=== PATIENT | male | born 1935 | race Caucasian/White ===

== ENCOUNTER 2018-07-03 06:38 | Inpatient (IN) | payer OTHER ==
[~2018-07-03] VITALS: Ht 185.4 cm; Wt 99.8 kg
[~2018-07-03 06:38] MED LIST: AMITRIPTYLINE H10 M1 PO; AMITRIPTYLINE H25 M3 PO; ASPIRIN325 PO; B-100 COMPLEX1 EAC1 PO; B-COMPLEX 100400 MC1; BYSTOLIC 5 MG5 M1 PO; CELEBREX 200 M200 M1 PO; CELEBREX 200 M200 MG PO; FISH OIL 1,001000 MG PO; HYDROCODONE-AP1 EA12 PO; LIPITOR10 MG PO; LIPITOR40 MG PO; MAG-OX 400 TAB400 M1 PO; MAG-OXIDE400 MG PO; MAXZIDE-25 MG1 EACH PO; NEXIUM40 MG PO; NIASPAN 500 MG500 M1 PO; NORCO 10-325 T1 EACH PO; PERCOCET 10-321 EACH; PLAVIX 75 MG TA75 M1 PO; PLAVIX 75 MG TA75 MG PO; QUINU10 PD PO; RESTORIL30 MG PO; TOPROL XL50 MG PO; VISTARIL 25 MG25 M1 GT; VITAMIN B-6100 MG PO
[2018-07-03] MEDS ORDERED: LEVOFLOXACIN250 MG PO (16:28)
[2018-07-03] MEDS ORDERED: MAXZIDE-25 MG1 EACH PO (16:29)
[2018-07-03 18:34] LABS: HEMATOCRIT 42.4 % (42.0-52.0); HEMOGLOBIN 14.3 gm/dL (14.0-18.0); MCH 30.7 pg (26.0-34.0); MCHC 33.7 g/dL (28.0-37.0); MCV 91.1 fL (80.0-100.0); RBC 4.65 mil/uL (4.50-6.00); RDW 13.4 % (10.5-14.5); WBC 7.8 thou/uL (4.0-11.0)
[2018-07-03 18:49] LABS: ALBUMIN 3.1 g/dL (3.4-5.0); CALCIUM 9.4 mg/dL (8.5-10.1); CREATININE 1.4 mg/dL (0.7-1.3); POTASSIUM 3.9 mmol/L (3.5-5.1); TOTAL BILIRUBIN 0.3 mg/dL (<0.1-1.0); TOTAL PROTEIN 6.8 g/dL (6.4-8.2)
[2018-07-03 19:05] VITALS: BP 147/93
[2018-07-03 20:45] VITALS: BP 154/92
--- NOTE | 2018-07-03 22:25 | NUR ---
2110: TOOK DISC OF CT FROM [place] TO RADIOLOGY TO HAVE UPLOADED TO SYSTEM PER DR SCHULTE'S REQUEST. DISC RETURNED TO PATIENT.
[2018-07-04 00:27] VITALS: BP 161/90
--- NOTE | 2018-07-04 04:04 | NUR ---
SLEPT MOST OF SHIFT. DENIES COMPLAINTS OF PAIN OR SHORTNESS OF AIR THIS NOC. UP TO BATHROOM WITH STEADY GAIT, WITH STANDBY ASSIST. WORKING ON GOALS AND PLAN OF CARE FOR NOC. NOT PROGRESSING TOWARDS DISCHARGE GOALS AT THIS TIME. CONTINUE TO ASSES CLOESLY.
[2018-07-04 04:30] VITALS: BP 142/90
[2018-07-04 08:01] VITALS: BP 144/85
[2018-07-04 11:46] VITALS: BP 134/86
--- NOTE | 2018-07-04 14:45 | NUR ---
ASSESSMENT: CM REVIEWED CHART AND MET WITH PT AT THE BEDSIDE. PT IS ALERT AND ORIENTED X4. CM MET WITH AND PT. PT REPORTS HE LIVES IN A HOUSE WITH HIS IN [place], [place]. PT REPORTS HE HAS ABOUT 5 STEPS WITH HANDRAILS TO ENTER HIS HOME. PT REPORTS ONCE INSIDE HE HAS NO STEPS TO HIS BEDROOM BUT REPORTS ABOUT 14 STEPS WITH HANDRAILS TO THE BASEMENT WHERE HE TAKES HIS SHOWER. PT REPORTS HE AMBULATES INDEPENDENTLY AND DOES NOT HAVE A CANE OR WALKER. PT REPORTS HE IS INDEPENDENT WITH ADLS. PT AND HIS SPEND THE D[place] IN [place] AND PT RECENTLY THERE AND ON 05/29 HE FELL ON STEPS IN HIS BOAT IN [place] AND [place] RI[place] AND HAS A WOUND TO HIS RYAN. PT WENT TO THE DOCTOR IN [place] AND PT HAD A CT OF CHEST AND FOUND A LUNG MASS. CTS AND PULM WERE CONSULTED FOR PATIENT. PT REPORTS THAT HE WAS SEEING DR. HESTER YESTERDAY FOR WOUND CARE AND THEY WERE SUPPOSED TO SET UP HH BUT STATES HE IS UNSURE THEY DID BECAUSE THEY TOLD HIM HE IS NOW INPATIENT. CM ATTEMPTED TO CONTACTED DR. HESTER OFFICE BUT IT IS CLOSED. AND PT PREFER HH TO HELP WITH WOUND CARE DUE TO LIVING FAR AND DO NOT HAVE A PREFERENCE ON AGENCY. CM CONTACTED [facility] [phone] WHO STATES THEY DO SERVICE THAT AREA AND TO FAX REFERRAL. CM FAXED REFERRAL TO [facility] FAX [phone].
[2018-07-04 15:12] VITALS: BP 130/77
--- NOTE | 2018-07-04 17:06 | NUR ---
WOUND CONSULT: PT. WAS SEEN TODAY BY DR. ADAMS AND MYSELF. PT. HAS A HEALING WOUND TO HIS LEFT LEG IN RELATION TO AN HEMOTOMA. RECOMMENDATIONS: WOUND CARE TO LEFT LEG: GENTLY CLEANSE AREA WITH WOUND CLEANSER OR NORMAL SALINE, PACK WITH AQUACEL AG TO WOUND BED, COVER WITH BORDERED FOAM, COMPLETE CARES M/W/F AND PRN. PT. AND STAFF NURSE WERE INSTRUCTED ON PLAN OF CARE.
[2018-07-04 19:25] VITALS: BP 138/77
[2018-07-05 00:28] VITALS: BP 128/88
[2018-07-05 04:23] VITALS: BP 143/91
--- NOTE | 2018-07-05 05:52 | NUR ---
PT MAKING PROGRESS TOWARDS GOALS. NO COMPLAINTS OF PAIN OVERNIGHT. HAS SLEPT MUCH OF THE NIGHT.
[2018-07-05 07:58] VITALS: BP 135/85
[2018-07-05 15:33] VITALS: BP 131/75
--- NOTE | 2018-07-05 16:41 | NUR ---
PT CARE ASSUMED APPROX 0700. PT ALERT AND ORIENTED X4. DENIES PAIN AND SOA. VSS. AT BEDSIDE. DR HAVE ALL ROUNDED. PT DENIES QUESTIONS OR CONCERNS REGARDING POC AT THIS TIME. CLINICAL UPDATE GIVEN TO PT'S . PT EVALUATED PT THIS SHIFT AND HAS APPROVED PT TO BE INDEPENDENT AND NO LONGER A FALL RISK. FALL RISK BRACELET REMOVED AND PT NOW IN ALEMAN SOCKS INSTEAD OF YELLOW FALL RISK SOCKS. NO DISTRESS NOTED.
[2018-07-05 20:00] VITALS: BP 135/81
[2018-07-06 04:15] VITALS: BP 131/85
[2018-07-06 04:29] LABS: ALBUMIN 2.8 g/dL (3.4-5.0); CREATININE 1.4 mg/dL (0.7-1.3); TOTAL BILIRUBIN 0.4 mg/dL (<0.1-1.0); TOTAL PROTEIN 6.4 g/dL (6.4-8.2)
[2018-07-06 04:30] LABS: PROTIME 9.9 Seconds (9.3-11.4)
[2018-07-06 04:31] LABS: ABSOLUTE NEUTROPHILS 5.6 thou/uL (1.4-8.2); BASOPHILS 0.6 % (0.0-2.0); EOSINOPHILS 2.8 % (0.0-3.0); HEMATOCRIT 42.4 % (42.0-52.0); HEMOGLOBIN 14.5 gm/dL (14.0-18.0); LYMPHOCYTES 9.8 % (24.0-44.0); MCH 31.1 pg (26.0-34.0); MCHC 34.2 g/dL (28.0-37.0); MCV 91.2 fL (80.0-100.0); MONOCYTES 10.3 % (1.0-8.0); PLATELET COUNT 249 thou/uL (150-400); POLYS 76.5 % (36.0-66.0); RBC 4.65 mil/uL (4.50-6.00); RDW 13.7 % (10.5-14.5); WBC 7.4 thou/uL (4.0-11.0)
--- NOTE | 2018-07-06 05:47 | NUR ---
PT MAKING PROGRESS TOWARDS GOALS. PT AWARE OF CT RESULTS, STATING THAT THE PHYSICIANS HAD INFORMED HIM "THAT ITS LIKELY CANCER." PT OPTIMISTIC STATING HE HOPE THAT IT WAS CAUGHT EARLY. AWARE OF PLANS FOR BIOSPY ON SATURDAY. UP AD LULU TO TOILET. DENIES ANY SOA. ON ROOM AIR THROUGHOUT THE NIGHT.
[2018-07-06 07:23] VITALS: BP 137/93
--- NOTE | 2018-07-06 11:21 | HC ---
[facility] [place] [address] CONSULTATION Name: CB TALBERT Room #: 352-P [facility] IN M.R.#: [id number] Admission: 07/03/18 ������������������ Attend Phys: Ziyad Corrales MD Discharge: ������������������ Date of : 37 Report #: [id number] THIS REPORT FOR: //name// CC: Leonides Corrales DATE OF SERVICE: 07/04/2018 We were asked to see the patient by Dr. Ziyad Corrales. HISTORY OF PRESENT ILLNESS: The patient is an 83-year-old admitted with increasing fatigue. The patient is being seen in the Wound Care Clinic for a slowly healing wound in the left schultz that began after the patient sustained a fall in [place] on 05/29/2018. We note that a CT scan of the chest was done on 05/30/2018 in [place]. This showed a spiculated mass in the right upper lobe of lung, measuring approximately 2.7 cm, with adjacent pleural thickening. Additionally, there was a 2.7 right hilar component and a small middle lobe subpleural nodule, measuring approximately 4 mm in size. There was also a nondisplaced fracture of the right 7th rib. In view of the increasing fatigue, the patient was admitted for evaluation of all of this. PAST MEDICAL HISTORY: Past history is significant for coronary artery disease, arthritis, hyperlipidemia, cataracts, barotrauma, sinusitis, tinnitus, glaucoma, COPD, myocardial infarcts in 1995 and 2001, prostate cancer diagnosed in 10/2012 and shingles in 12/2014. PAST SURGICAL HISTORY: Previous surgeries include cholecystectomy, neck surgery, left shoulder replacement, carpal tunnel surgery, left hand cyst removal, cataract repair, back surgery, right and left knee replacement, transurethral prostate resection and stent placement in the coronary artery. MEDICATIONS: At home include aspirin, atorvastatin, quinapril, magnesium, Celebrex, Plavix, omeprazole, Levaquin, amitriptyline and vitamin B. ALLERGIES: PENICILLIN. FAMILY HISTORY: Positive for heart disease in father and a sibling. SOCIAL HISTORY: The patient is remarried. The patient claims he is a former smoker, who quit in 1994. He lives in [place] part of the year. REVIEW OF SYSTEMS: GENERAL: The patient describes some generalized fatigue, but no fever or chills. [address] [address] CONSULTATION Name: CB TALBERT Room #: 352-P [facility] IN ..#: [id number] Admission: 07/03/18 ������������������ Attend Phys: Ziyad Corrales MD Discharge: ������������������ Date of : 37 Report #: [id number] EYES: No visual changes. ENT: Wears hearing aids. No nose or throat complaints. CARDIAC: No chest pain or palpitations. RESPIRATORY: Mild shortness of breath with exertion. SKIN: No rash or infection. GASTROINTESTINAL: No nausea, vomiting or blood. GENITOURINARY: No urgency, frequency or blood. MUSCULOSKELETAL: Some scattered arthritic complaints. NEUROLOGIC: No motor or sensory loss. PSYCHIATRIC: No depression or anxiety. EXTREMITIES: Being treated for a large wound on the left lower leg. PHYSICAL EXAMINATION: CONSTITUTIONAL: The patient is lying in bed, seems comfortable. VITAL SIGNS: Temperature 36.8, pulse rate 84, respiratory rate 16, blood pressure 134/86 and O2 sat 95 on room air. HEENT: Normocephalic. Pupils are round, equal and reactive. NECK: No mass, no bruit. CHEST: Clear to auscultation bilaterally. HEART: Rhythm regular. No murmurs. ABDOMEN: Soft. No mass, no tenderness. EXTREMITIES: We note the Samm wrap around the left schultz; otherwise, no obvious problems with the wounds, clubbing or cyanosis. VASCULAR: With 2+ popliteal pulses bilaterally. PSYCHIATRIC: Mood is appropriate, shows insight into problem. ASSESSMENT AND PLAN: The patient has CT scan that is consistent with lung malignancy, be it primary or metastatic. As the patient is an inpatient, it will be difficult to obtain a PET scan. It would be reasonable to obtain a needle biopsy of the larger right upper lobe lesion at least for diagnostic purposes. As far as the fatigue goes, this may be a reflection of more systemic disease. We will discuss workup with the others. Thank you for the consult. ��������������������������������������������� <ELECTRONICALLY SIGNED> ���������������������������������������� By: Greg Giron MD ��������������������������������������������� 07/06/18 1121 [id number] [id number] Greg Giron MD /nt
--- NOTE | 2018-07-06 11:32 | NUR ---
care of pt assumed this am @ ~0700. pt noted to be resting in bed quietly. pt awakened from sleep when breakfast tray arrived, ate breakfast sitting at bs. pt denies co pain, soa and no n/v/d thus far today. pt on room air. 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 pt up ad elena in room w/ a steady, balanced and coordinated gait. pt offered a shower today, states he may like one later today. noted intact, w/ drainage drsg to lle.
[2018-07-06 16:17] VITALS: BP 142/81
[2018-07-06 19:30] VITALS: BP 148/78
[2018-07-07] VITALS (12 sets, daily range): BP systolic 115–1119; BP diastolic 59–94
--- NOTE | 2018-07-07 03:21 | NUR ---
SLEPT MOST OF SHIFT. UP AD LULU TO BATHROOM WITH STEADY GAIT. DENIES COMPLAINTS OF PAIN OR SHORTNESS OF AIR. NPO FOR AM LUNG BIOPSY. WORKING ON GOALS AND PLAN OF CARE FOR NOC. PROGRESSING SLOWLY TOWARDS DISCHARGE GOALS. CONTINUE TO SLEEP,
--- NOTE | 2018-07-07 08:52 | HC ---
[facility] [place] [address] CONSULTATION Name: CB TALBERT Room #: 352-P [facility] IN M.R.#: [id number] Admission: 07/03/18 ������������������ Attend Phys: Ziyad Corrales MD Discharge: ������������������ Date of : 37 Report #: [id number] THIS REPORT FOR: //name// CC: Leonides Corrales DATE OF SERVICE: 07/04/2018 CHIEF COMPLAINT: Traumatic wound to the left lower extremity. HISTORY OF PRESENT ILLNESS: This is an 83-year-old male patient who spends his troncoso down in [place]. He was on a fishing boat when he stumbled going down some steps sustaining a traumatic injury to his left leg. He developed hematoma, it required debridement and evacuation. He originally had a wound VAC placed and was seen in the Wound Center for followup here at [facility]. He has been admitted, however, for some pulmonary related issues and lung masses and is here for further evaluation and treatment. I have been asked to see him with regard to wound care. PAST MEDICAL HISTORY: Positive for coronary artery disease, hyperlipidemia, sinusitis, tinnitus, glaucoma, COPD, previous myocardial infarction, prostate cancer, shingles. MEDICATIONS: Include aspirin, atorvastatin, quinapril, magnesium, Celebrex, Plavix, esomeprazole, Levaquin, amitriptyline. ALLERGIES: PENICILLIN. FAMILY HISTORY: Positive for heart disease. SOCIAL HISTORY: The patient drinks caffeine daily. Moderate alcohol consumption. REVIEW OF SYSTEMS: CONSTITUTIONAL: The patient denies fever, chills, or weight loss. NEUROLOGICAL: The patient denies focal weakness, numbness or tingling. EYES: The patient denies visual changes, redness or drainage. ENT: The patient denies earache, nasal drainage or sore throat. CARDIOVASCULAR: The patient denies chest pain, palpitations, or diaphoresis. PULMONARY: The patient denies cough or shortness of breath except with exertion. GASTROINTESTINAL: The patient denies nausea, vomiting or abdominal pain. ORTHOPEDIC: The patient is aware of the ulceration, traumatic wound to his left leg. Other systems are negative in a 14-point review of systems. PHYSICAL EXAMINATION: [facility] [address] [place] [address] CONSULTATION Name: CB TALBERT Omer Room #: 352-P [facility] IN ..#: [id number] Admission: 07/03/18 ������������������ Attend Phys: Ziyad Corrales MD Discharge: ������������������ Date of : 37 Report #: [id number] VITAL SIGNS: At this time include pulse 68, respiration 16, blood pressure 130/77, and temperature 98.0. GENERAL: This is a chronically ill-appearing male patient who appears to be in minimal distress. HEENT: Head normocephalic. Nose and throat clear. NECK: Supple. LUNGS: Diminished. HEART: Regular rate. ABDOMEN: Soft. Bowel sounds present. EXTREMITIES: Examination of the lower extremities demonstrates intact distal pulses. He has a traumatic wound to the left pretibial region. It is clean and granulating. There is some undermining and a small tunnel that extends laterally. Does not appear to be infected. CLINICAL IMPRESSION: Traumatic wound to the left lower extremity following fall with subcutaneous hematoma. It is status post incision and evacuation. RECOMMENDATIONS: At this point in time, we will pack the area with silver alginate rope and covered with a border foam. This could be changed Saturday, Saturday and Saturday and as needed. Continue with his current medications and aggressive nutritional support to maintain maximum wound healing. I appreciate being asked to see him in consultation. ��������������������������������������������� <ELECTRONICALLY SIGNED> ���������������������������������������� By: Deangelo Yang MD ��������������������������������������������� 07/07/18 0852 [id number] Deangelo Yang MD /nt
--- NOTE | 2018-07-07 16:33 | NUR ---
ON-GOING ASSESSMENT: CM REVIEWED CHART. CM CONTACTED [facility] WHO STATES THEY CANNOT ACCEPT PATIENT DUE TO THEM NOT HAVING A CONTRACT WITH PATIENTS INSURANCE. CM CONTACTED [facility] AGAIN TO SEE IF THEY COULD ACCEPT PATIENT. THEY ARE ABLE TO ACCEPT PATIENT FOR HOME HEALTH SERVICES ONCE MEDICALLY STABLE. PT HAS A LUNG MASS AND WAS GETTING A BIOPSY TODAY. CM WILL CONTINUE TO FOLLOW TO ASSIST NEEDED.
--- NOTE | 2018-07-07 16:46 | NUR ---
WOUND FOLLOW UP: PT. WAS SEEN TODAY BY DR. ADAMS AND MYSELF. PT. WOUND IS CLINICALLY BETTER TODAY. RECOMMENDATIONS: CONTINUE WITH CURRENT PLAN OF CARE. PT. AND STAFF NURSE WERE INSTRUCTED ON PLAN OF CARE.
--- NOTE | 2018-07-07 18:50 | NUR ---
PATIEN HAD BIOPSY TODAY AND TOLERATED WELL. DOES NOT SEEM TO BE IN PAIN. DID COMPLAIN OF PAIN TO RIGHT UPPER BACK. STATES IT HURTS MORE WHEN HE STANDS IN THE BATHROOM. HE IS ALERT ORIENTED X4. NOW SLEEPING. WILL CONT WITH PLAN OF CARE.
--- NOTE | 2018-07-08 03:25 | NUR ---
ASSUMED PT CARE AROUND 1900. A&OX4. DENIES ANY PAIN. UP AD LULU AROUND THE ROOM WITH STEADY GAIT. DR WATKINS ROUNDED ON PT LATE IN THE EVENING. PT SLEPT MOST OF THE NIGHT. RESP EVEN AND UNLABORED. VSS. RT CHEST LUNG BIOPSY SITE C/D/I. NO MAJOR COMPLAINTS THIS SHIFT. PROGRESSING TOWARD POC GOALS. WILL CONTINUE TO MONITOR FURTHER.
[2018-07-08 03:55] VITALS: BP 119/74
[2018-07-08 08:06] VITALS: BP 117/83
--- NOTE | 2018-07-08 15:01 | NUR ---
on-GOING ASSESSMENT: CM REVIEWED CHART AND MET WITH PATIENT AND HIS AT THE BEDSIDE. PT HAS ORDERS TO DISCHARGE HOME TODAY WITH HH. [facility] HAS ACCEPTED PATIENT AND IS IN HIS SERVICE AREA. CM NOTIFIED [facility] OF DISCHARGE TODAY. REPORTS SHE IS ABLE TO PROVIDE TRANSPORTATION HOME. CM WILL CONTINUE TO FOLLOW TO ASSIST NEEDED.
--- NOTE | 2018-07-08 15:31 | NUR ---
WOUND FOLLOW UP: PT. WAS SEEN TODAY BY DR. ADAMS AND MYSELF. PT. WOUND IS CLINICALLY BETTER AT THIS TIME. RECOMMENDATIONS: CONTINUE WITH CURRENT PLAN OF CARE. PT. AND STAFF NURSE WERE INSTRUCTED ON PLAN OF CARE.
[2018-07-08 15:59] VITALS: BP 128/76
--- NOTE | 2018-07-08 16:14 | NUR ---
PATIENT DISCHARGED HOME AT THIS TIME. HE IS ALERT ORIENTED X4. WOUND CARE DRESSING INSTRUCTION GIVEN. HE WILL FOLLOW UP WITH CARDIOLOGY AND ALSO OUTPATIENT PET SCAN WILL BE SCHEDULED BY DR WATKINS. HE DENIES PAIN AT TIME OF DISCHARGE. ASSISTED TO DOOR BY STAFF.
--- NOTE | 2018-07-09 16:06 | PATH ---
[facility] [place] [address] PATHOLOGY RPT PROCEDURE Name: CB TALBERT Room #: 352-P [facility] IN M.R.#: [id number] ������������������ Admission: 07/03/18 ������������������ Date of : 37 Discharge: 07/08/18 Report #: [id number] Path Case #: [id number] [facility] Accession Number: [id number] . 01 Material submitted: . lung - RIGHT LUNG MASS. Modifiers: right . 01 Clinical history: . R upper lobe mass, LLE wound and fractures ribs . 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 - No lung parenchyma present. - Specimen comprised of fibrous tissue, nerve and skeletal muscle. - Focal perineural invasion present. - Skeletal muscle showing reactive changes; uninvolved by malignancy. (IUV:wilbur; 07/09/2018) MBR/07/09/2018 . 02 Comment: TTF-1 and p63 properly controlled immunohistochemical stains are performed on block A1. The tumor shows strong nuclear reactivity to p63 consistent with the diagnosis rendered. . Co-review: Dr. Summer Damon. . Findings of this case are discussed with Miss Shahida Mckeon, nurse for Dr. Stephens at 10:13 a.m. on 07/09/18. . (IUV:screener operator; 07/09/2018) . 02 Electronically signed: . Gabriela Mckeon MD, Pathologist NPI- [id number] . 01 Gross description: . The specimen is received in formalin, labeled "Cb Talbert R lung mass" and consists of a few delicate needle cores of pink-odonnell tissue measuring 0.5 x 0.4 x 0.1 cm in aggregate which are entirely submitted in A1. (SDY; 07/07/2018) SYU/SYU . 02 Pathologist provided ICD-10: C49.3 . 02 [place] [address] PATHOLOGY RPT PROCEDURE Name: CB TALBERT Room #: 352-P [facility] IN M.R.#: [id number] ������������������ Admission: 07/03/18 ������������������ Date of : 37 Discharge: 07/08/18 Report #: [id number] Path Case #: [id number], [id number] Specimen Comment: A courtesy copy of this report has been sent to Specimen Comment: [phone], , . Specimen Comment: Report sent to ,DR HESTER / DR WATKINS Performed at: [address], [place] [id number] MD Shreyas Ryan MD Phone: [phone] Performed at: [address] [id number] MD Gabriela Mckeon MD Phone: [phone]
[2018-07-21] MEDS ORDERED: TRAZODONE HCL100 MG PO (08:36)
[2018-07-21] MEDS ORDERED: SUPER B-50 COM1 EACH PO (08:37)
[2018-07-21] MEDS ORDERED: NITROGLYCERIN0.4 MG SUBLING (08:37)
--- NOTE | 2018-07-23 12:04 | H ---
[facility] [place] [address] HISTORY AND PHYSICAL Name: CB TALBERT Room #: 352-P [facility] IN M.R.#: [id number] Admission: 07/03/18 ������������������ Attend Phys: Ziyad Corrales MD Discharge: 07/08/18 ������������������ Date of : 37 Report #: [id number] THIS REPORT FOR: //name// CC: Leonides Corrales DATE OF SERVICE: 07/03/2018 CHIEF COMPLAINT: Lung masses. HISTORY OF PRESENT ILLNESS: The patient is an 83-year-old white male well known to me as I have provided his primary medical care for a number of years. He tron[place]o in [place] and while in [place] on 05/29/2018, he fell on a set of stairs in his boat. He fractured some left-sided ribs, had a wound on his left schultz, which developed a hematoma and he went to a physician in [place], [place]. He received wound care and hematoma evacuation and his imaging studies for his chest, which was a CT chest without contrast done on 05/30/2018 at [facility] [place] [facility]. A spiculated mass was seen in the peripheral aspect of the right upper lung laterally and anteriorly measuring 2.7 cm with a neoplastic process not excluded, adjacent pleural thickening was seen, soft tissue mass with suspected in the right hilum measuring 2.7 cm, also suspicious for neoplasia. Small subcentimeter right middle lobe lung nodules measuring 4 mm may also be related to metastatic process. I saw him in my office today on the day of this admission and reviewed his medical history since last seen in my office specifically and especially focusing on the events surrounding his fall and the incidental findings of his lung masses. We discussed options to proceed with diagnostic studies and eventually treatment. Reviewed the differential diagnosis and he opted for admission to [facility] and appropriate consults to Cardiothoracic surgery, Pulmonology, Cardiology and Wound Care for ongoing care of his left schultz healing wound. PAST MEDICAL HISTORY: Coronary artery disease, arthritis, hyperlipidemia, cataracts, barotrauma, sinusitis, tinnitus, glaucoma, chronic obstructive pulmonary disease, myocardial infarction 1995 and 2001, prostate cancer, 10/2012, shingles 12/2014, hearing aids from 06/30/2014. PAST SURGICAL HISTORY: Cholecystectomy, neck surgery, left shoulder replacement, carpal tunnel surgery, cyst of left hand, stent placement, cataract repair, back surgery, left and right knee replacement, transurethral resection of prostate. MEDICATIONS: Aspirin 325 mg once daily, none since his fall in May, atorvastatin 40 mg 1 p.o. daily, quinapril 10 mg 1 p.o. daily, magnesium 200 mg 2 p.o. daily, Celebrex 200 mg 1 p.o. daily, Plavix 75 mg 1 p.o. daily, none since his fall in May, esomeprazole 40 mg 1 p.o. daily, Levaquin 250 mg 1 daily over 14 days, 4 days left. Amitriptyline 25 mg 1 p.o. at bedtime, vitamin [address] [address] HISTORY AND PHYSICAL Name: CB TALBERT Room #: 352-P [facility] IN ..#: [id number] Admission: 07/03/18 ������������������ Attend Phys: Ziyad Corrales MD Discharge: 07/08/18 ������������������ Date of : 37 Report #: [id number] B complex 1 p.o. daily. ALLERGIES: PENICILLIN. FAMILY HISTORY: Positive for heart disease in father and a sibling, hypertension in sibling. SOCIAL HISTORY: He is remarried, retired, father of 2 children. Drinks caffeine daily. Drinks alcohol moderately socially. Denies illicit drug use or abuse. Lives at home, lives in [place] during the spring and summer, early fall and troncoso in [place]. REVIEW OF SYSTEMS: GENERAL: No fever, chills, nausea, vomiting, diarrhea. EYES: No visual changes. ENT: No problems with hearing, swallow, taste or smell. He does use hearing aids. CARDIOVASCULAR: No chest pain or palpitations. RESPIRATORY: He has some shortness of breath and exertional dyspnea. SKIN: He has a lung masses noted on CT scan from 05/2018. GASTROINTESTINAL: No abdominal pain. GENITOURINARY: No problems urinating. MUSCULOSKELETAL: Some arthritic changes. NEUROLOGIC: No paresis, paralysis or paresthesias. PSYCHIATRIC: Concern but not depressed. DERMATOLOGIC: No disturbing lesions or rash. EXTREMITIES: He does have a healing large wound on his left lower leg with recent hematoma evacuation there following a fall. Remainder of system review is negative. OBJECTIVE: VITAL SIGNS: Temperature is 97.1, pulse 73, respirations 122/83. He is in no acute distress, but respiratory rate 16, alert and oriented, engaging in conversation. HEENT: Pupils equal, round, reactive to light and accommodation. Extraocular muscles intact. Pharynx unremarkable. NECK: Supple. CARDIOVASCULAR: S1, S2. CHEST: Clear. ABDOMEN: Soft, nontender. EXTREMITIES: No cyanosis, clubbing or edema. He does have a wound on his left lower leg. NEUROLOGIC: Intact without focal neurologic deficit. ASSESSMENT: 1. Right lung masses. [facility] [address] [place] [address] HISTORY AND PHYSICAL Name: CB TALBERT Room #: 352-P [facility] IN .R.#: [id number] Admission: 07/03/18 ������������������ Attend Phys: Ziyad Corrales MD Discharge: 07/08/18 ������������������ Date of : 37 Report #: [id number] 2. Left seventh rib fracture. 3. Chronic obstructive pulmonary disease, compression fractures with vertebroplasty changes in the lower T-spine and upper lumbar spine, recent fall, left leg wound, coronary artery disease, history of myocardial infarction, hyperlipidemia, hypertension, history of prostate cancer, arthritis. PLAN: Admit to hospital. Consult Cardiothoracic Surgery, Cardiology, Pulmonology and Wound Care. Continue current medications, making sure that he is not currently taking Plavix or aspirin in anticipation of likely biopsy soon. Continue other current medications. Basic entry laboratory requested. ��������������������������������������������� <ELECTRONICALLY SIGNED> ���������������������������������������� By: Leonides Yun MD, LYDIA, RC ��������������������������������������������� 07/23/18 1204 1949 29 Leonides Yun MD, LYDIA, RC /nt
== END 2018-07-08 16:26 | disposition home health service (06) | DRG 204 ==
LOC: HYPER 06:38 → 3W 15:16 → HYPER 16:55 → 3W 17:07 → ENTRNSPT 07-08 16:03 → 3W 07-08 16:26
PROVIDERS: Internal Medicine; ADMIT Family Medicine
PROC: 0BBC3ZX Excision of Right Upper Lung Lobe, Percutaneous Approach, Diagnostic (ICD-10-PCS; principal; 2018-07-07)
DX: R91.8 Other nonspecific abnormal finding of lung field (principal); S22.32XA Fracture of one rib, left side, initial encounter for closed fracture; I25.10 Atherosclerotic heart disease of native coronary artery without angina pectoris; J44.9 Chronic obstructive pulmonary disease, unspecified; M19.90 Unspecified osteoarthritis, unspecified site; E78.5 Hyperlipidemia, unspecified; E66.9 Obesity, unspecified; Z96.652 Presence of left artificial knee joint; I10 Essential (primary) hypertension; S81.802A Unspecified open wound, left lower leg, initial encounter; Y93.89 Activity, other specified; Y92.89 Other specified places as the place of occurrence of the external cause; Y99.8 Other external cause status; V93.32XA Fall on board fishing boat, initial encounter; Z88.0 Allergy status to penicillin; Z90.49 Acquired absence of other specified parts of digestive tract; Z82.49 Family history of ischemic heart disease and other diseases of the circulatory system; Z79.899 Other long term (current) drug therapy; Z79.82 Long term (current) use of aspirin; I25.2 Old myocardial infarction; Z85.46 Personal history of malignant neoplasm of prostate; Z68.29 Body mass index [BMI] 29.0-29.9, adult
CPT/HCPCS: 10779; 10879

== ENCOUNTER → 2018-07-10 | Outpatient (CLI) | payer OTHER ==
[~2018-07-10] MED LIST changes: +LEVOFLOXACIN250 MG PO
== END ==
LOC: HYPER 06:54
DX: T81.89XD Other complications of procedures, not elsewhere classified, subsequent encounter (principal); L97.222 Non-pressure chronic ulcer of left calf with fat layer exposed; E78.5 Hyperlipidemia, unspecified; H40.9 Unspecified glaucoma; I25.10 Atherosclerotic heart disease of native coronary artery without angina pectoris; I25.2 Old myocardial infarction; J44.9 Chronic obstructive pulmonary disease, unspecified; M19.90 Unspecified osteoarthritis, unspecified site; Z85.46 Personal history of malignant neoplasm of prostate; Z79.01 Long term (current) use of anticoagulants; Z87.891 Personal history of nicotine dependence; Y83.8 Other surgical procedures as the cause of abnormal reaction of the patient, or of later complication, without mention of misadventure at the time of the procedure

== ENCOUNTER → 2018-07-16 | Outpatient (CLI) | payer OTHER | LOC: HYPER 06:41 | DX: T81.89XD Other complications of procedures, not elsewhere classified, subsequent encounter (principal); L97.222 Non-pressure chronic ulcer of left calf with fat layer exposed; I25.10 Atherosclerotic heart disease of native coronary artery without angina pectoris; I25.2 Old myocardial infarction; E78.5 Hyperlipidemia, unspecified; H40.9 Unspecified glaucoma; J44.9 Chronic obstructive pulmonary disease, unspecified; M19.90 Unspecified osteoarthritis, unspecified site; Z79.01 Long term (current) use of anticoagulants; Z87.891 Personal history of nicotine dependence; Z85.46 Personal history of malignant neoplasm of prostate; Y83.8 Other surgical procedures as the cause of abnormal reaction of the patient, or of later complication, without mention of misadventure at the time of the procedure ==

== ENCOUNTER → 2018-07-22 | Outpatient (CLI) | payer OTHER ==
[~2018-07-22] VITALS: Ht 185.4 cm; Wt 100.7 kg
[~2018-07-22] MED LIST changes: +NITROGLYCERIN0.4 MG SUBLING; +SUPER B-50 COM1 EACH PO; +TRAZODONE HCL100 MG PO
--- NOTE | 2018-08-04 13:32 | PFR/MVV ---
[facility] [address] PULMONARY FUNCTION MVV/REPORT Name: CB TALBERT Room #: [facility]#: [id number] ������������������ Admission: 07/22/18 ������������������ Attend Phys: Aquiles Ny MD Discharge: ������������������ Date of : 39 Report #: [id number] THIS REPORT FOR: //name// >> SPIROMETRY: (BTPS) Height: in cm Weight: lbs kg Exam Date: PRE-RX POST-RX PRED BEST %PRED BEST %PRED %CHG FVC LITERS . . . . . . FEV1 LITERS . . . . . . FEV1/FVC % . . . . . . QAM50-02% L/Sec . . . . . . PEF L/SEC . . . . . . FEF50/FIF50 UNITLESS . . . . . . MVV L/Min . . . f 1/Min . . . >> LUNG VOLUMES: (BTPS) PRE-RX POST-RX PRED AVG %PRED AVG %PRED %CHG VC Liters . . . . . . TLC Liters . . . . . . RV Liters . . . . . . RV/TLC % . . . . . . FRC PL Liters . . . . . . FRC N2 Liters . . . . . . ERV Liters . . . . . . IC Liters . . . . . . >> DIFFUSION: DLCO ml/Min/mmHg . . . . . . DL Chance ml/Min/mmHg . . . . . . DLCO/VA ml/Min/mmHg . . . . . . VA Liters . . . . . . COMMENTS: COMMENTS: >> RESISTANCE: [facility] [address] [place] [address] PULMONARY FUNCTION MVV/REPORT Name: CB TALBERT Room #: [facility]#: [id number] ������������������ Admission: 07/22/18 ������������������ Attend Phys: Aquiles Ny MD Discharge: ������������������ Date of : 37 Report #: [id number] PRE-RX PRED AVG %PRED Raw Total cmH20/L/Sec . . . Raw Insp cmH20/L/Sec . . . Raw Exp cmH20/L/Sec . . . Raw cmH20/L/Sec . . . Gaw L/Sec/cmH20 . . . sRaw cmH20 Sec . . . sGaw l/cmH20 Sec . . . Vtq Liters . . . # = OUTSIDE 95% CONFIDENCE INTERVAL CALIBRATION: PRED: 3.00 ACTUAL: EXP 3.01 INSP 3.02 [id number]-[id number] [facility] N-1804-4 >> INTERPRETATION/IMPRESSION: CC: Leonides Ny DATE OF SERVICE: 08/03/2018 Spirometric examination revealed moderate obstructive ventilatory defect. There was significant bronchodilator response. Lung volumes moderately decreased. Diffusion capacity is markedly reduced, corrected for alveolar volume. Flow volume loop is consistent with mixed obstructive and restrictive ventilatory defect. 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 Clinical correlation is suggested. ��������������������������������������������� <ELECTRONICALLY SIGNED> ���������������������������������������� By: Gurdeep Cordova MD ��������������������������������������������� 08/04/18 1332 Gurdeep Cordova MD /nt
== END ==
LOC: CATH 05:43 → PUL 08:59
DX: R06.00 Dyspnea, unspecified (principal)

== ENCOUNTER → 2018-07-30 | Outpatient (CLI) | payer OTHER | LOC: HYPER 06:52 | DX: T81.89XD Other complications of procedures, not elsewhere classified, subsequent encounter (principal); L97.222 Non-pressure chronic ulcer of left calf with fat layer exposed; E78.5 Hyperlipidemia, unspecified; H40.9 Unspecified glaucoma; I25.10 Atherosclerotic heart disease of native coronary artery without angina pectoris; I25.2 Old myocardial infarction; J44.9 Chronic obstructive pulmonary disease, unspecified; M19.90 Unspecified osteoarthritis, unspecified site; Z85.46 Personal history of malignant neoplasm of prostate; Z87.891 Personal history of nicotine dependence; Z79.01 Long term (current) use of anticoagulants; Y83.8 Other surgical procedures as the cause of abnormal reaction of the patient, or of later complication, without mention of misadventure at the time of the procedure ==

== ENCOUNTER → 2019-07-15 | Outpatient (CLI) | payer OTHER | LOC: SJCVCIMAG 09:22 | DX: R94.31 Abnormal electrocardiogram [ECG] [EKG] (principal); I21.19 ST elevation (STEMI) myocardial infarction involving other coronary artery of inferior wall; I44.0 Atrioventricular block, first degree; I12.9 Hypertensive chronic kidney disease with stage 1 through stage 4 chronic kidney disease, or unspecified chronic kidney disease; N18.4 Chronic kidney disease, stage 4 (severe); R79.89 Other specified abnormal findings of blood chemistry; I25.10 Atherosclerotic heart disease of native coronary artery without angina pectoris; E78.00 Pure hypercholesterolemia, unspecified; I25.5 Ischemic cardiomyopathy; C34.91 Malignant neoplasm of unspecified part of right bronchus or lung ==

== ENCOUNTER → 2019-11-11 | Outpatient (CLI) | payer OTHER | LOC: RAD 08:46 → MRI 12:01 → RAD 13:37 | PROVIDERS: ATTEND Orthopaedic Surgery | DX: M25.511 Pain in right shoulder (principal); M19.011 Primary osteoarthritis, right shoulder; Z79.899 Other long term (current) drug therapy; Z98.890 Other specified postprocedural states ==

== ENCOUNTER → 2019-12-14 | Outpatient (CLI) | payer OTHER | LOC: SJCVCIMAG 07:38 | PROVIDERS: ATTEND Internal Medicine Cardiovascular Disease | DX: I25.10 Atherosclerotic heart disease of native coronary artery without angina pectoris (principal); I44.0 Atrioventricular block, first degree; I49.3 Ventricular premature depolarization; E78.5 Hyperlipidemia, unspecified; E78.00 Pure hypercholesterolemia, unspecified; I12.9 Hypertensive chronic kidney disease with stage 1 through stage 4 chronic kidney disease, or unspecified chronic kidney disease; N18.4 Chronic kidney disease, stage 4 (severe); C34.91 Malignant neoplasm of unspecified part of right bronchus or lung; Z79.899 Other long term (current) drug therapy; Z87.891 Personal history of nicotine dependence ==

== ENCOUNTER 2020-01-28 09:53 | Emergency (ER) | payer OTHER ==
[~2020-01-28] VITALS: Ht 182.9 cm; Wt 113.4 kg
[2020-01-28] MEDS ORDERED: LEVO-T50 MCG PO (10:36)
[2020-01-28] MEDS ORDERED: PLAVIX 75 MG TA75 MG PO (10:36)
[2020-01-28] MEDS ORDERED: ALLER-EASE180 MG PO (10:37)
[2020-01-28] MEDS ORDERED: FLONASE 0.05%50 MCG NASAL (10:37)
[2020-01-28 10:58] LABS: ABSOLUTE NEUTROPHILS 9.9 thou/uL (1.4-8.2); BASOPHILS 0.2 % (0.0-2.0); EOSINOPHILS 0.8 % (0.0-3.0); HEMATOCRIT 30.4 % (42.0-52.0); HEMOGLOBIN 9.9 gm/dL (14.0-18.0); LYMPHOCYTES 4.2 % (24.0-44.0); MCH 28.2 pg (26.0-34.0); MCHC 32.7 g/dL (28.0-37.0); MCV 86.2 fL (80.0-100.0); MONOCYTES 10.4 % (1.0-8.0); PLATELET COUNT 361 thou/uL (150-400); POLYS 84.4 % (36.0-66.0); RBC 3.53 mil/uL (4.50-6.00); RDW 16.4 % (10.5-14.5); WBC 11.7 thou/uL (4.0-11.0)
[2020-01-28 11:09] LABS: ANION GAP 11 mmol/L (7-16); BUN 29 mg/dL (7-18); CALCIUM 8.6 mg/dL (8.5-10.1); CHLORIDE 97 mmol/L (98-107); CO2 27 mmol/L (21-32); CREATININE 2.2 mg/dL (0.7-1.3); GLUCOSE 127 mg/dL (74-106); POTASSIUM 3.5 mmol/L (3.5-5.1); SODIUM 135 mmol/L (136-145)
[2020-01-28 11:19] LABS: ALBUMIN 2.6 g/dL (3.4-5.0); DIRECT BILIRUBIN 0.2 mg/dL (<0.1-0.2); SGOT 19 U/L (15-37); SGPT 18 U/L (30-65); TOTAL BILIRUBIN 0.4 mg/dL (0.2-1.0); TOTAL PROTEIN 6.7 g/dL (6.4-8.2); TROPONIN-I <0.06 ng/mL (<0.06)
[2020-01-28 11:23] LABS: APTT 37.7 Seconds (24.5-32.8); PROTIME 10.2 Seconds (9.3-11.4)
[2020-01-28] MEDS ORDERED: MEDROLDOSEPACK PO (12:59)
[2020-01-28] MEDS ORDERED: ZPAK PO (12:59)
[2020-01-28 13:06] VITALS: BP 133/65
--- NOTE | 2020-01-28 15:36 | EKG ---
[facility] [place] [address] ELECTROCARDIOGRAM REPORT Name: CB TALBERT [id number] Admission: 01/28/20 Attend Phys: Discharge: 01/28/20 Date of : 37 Report #: [id number] THIS REPORT FOR: cc: Leonides Yun MD FAA Leonides Reeves MD [facility] Shay Scott MD [facility] ~ THIS REPORT FOR: //name// [facility] ED Test Date: 2020-01-28 Test Time: 09:59:36 Pat Name: CB TALBERT Department: Room: Gender: M Framing Inspector: [facility] : 1935 Requested By: Betty Frank Order Number: [id number] MD: Shay Rhoades Measurements Intervals [place] Rate: 79 P: 212 VA: 322 QRS: -28 QRSD: 101 T: 26 QT: 432 QTc: 496 Interpretive Statements Sinus or ectopic atrial rhythm Ventricular premature complex Prolonged VA interval Inferior infarct, old Compared to ECG 06/16/2013 08:33:34 Ectopic atrial rhythm now present Ventricular premature complex(es) now present Sinus rhythm no longer present Myocardial infarct finding still present Electronically Signed On 01-28-2020 15:35:56 [employer]PUTER TYP[employer]ETTER KEYLINER by Shay Rhoades [email or web address] <ELECTRONICALLY SIGNED> By: Shay Rhoades MD, FACC 01/28/20 1535 Shay Rhoades MD, [facility] /EPI
== END 2020-01-28 13:13 | disposition home or self-care (01) ==
LOC: ER 09:53
PROVIDERS: Emergency Medicine
DX: R07.89 Other chest pain (principal); R06.00 Dyspnea, unspecified; C34.90 Malignant neoplasm of unspecified part of unspecified bronchus or lung; I10 Essential (primary) hypertension; E78.5 Hyperlipidemia, unspecified; I25.2 Old myocardial infarction; M19.90 Unspecified osteoarthritis, unspecified site; Z96.653 Presence of artificial knee joint, bilateral; Z96.612 Presence of left artificial shoulder joint; Z90.49 Acquired absence of other specified parts of digestive tract; Z95.5 Presence of coronary angioplasty implant and graft; Z79.899 Other long term (current) drug therapy; Z88.0 Allergy status to penicillin

== ENCOUNTER → 2020-02-16 | Outpatient (CLI) | payer OTHER ==
[~2020-02-16] MED LIST changes: +ALLER-EASE180 MG PO; +FLONASE 0.05%50 MCG NASAL; +LEVO-T50 MCG PO; +MEDROLDOSEPACK PO; +ZPAK PO
== END ==
LOC: RAD 15:58
PROVIDERS: ATTEND Pediatrics
DX: C34.90 Malignant neoplasm of unspecified part of unspecified bronchus or lung (principal); I51.7 Cardiomegaly; J90 Pleural effusion, not elsewhere classified; J98.11 Atelectasis; I77.819 Aortic ectasia, unspecified site

== ENCOUNTER → 2020-02-26 | Outpatient (CLI) | payer OTHER | LOC: RAD 08:59 | PROVIDERS: ATTEND Pediatrics | DX: C34.90 Malignant neoplasm of unspecified part of unspecified bronchus or lung (principal); J90 Pleural effusion, not elsewhere classified; J98.11 Atelectasis; J44.9 Chronic obstructive pulmonary disease, unspecified ==

== ENCOUNTER → 2020-05-03 | Outpatient (CLI) | payer OTHER | LOC: RAD 11:48 | PROVIDERS: ATTEND Pediatrics | DX: J90 Pleural effusion, not elsewhere classified (principal); I51.7 Cardiomegaly; M41.84 Other forms of scoliosis, thoracic region ==

== ENCOUNTER 2020-08-10 15:01 | Inpatient (IN) | payer OTHER ==
[~2020-08-10] VITALS: Ht 182.9 cm; Wt 89.1 kg
[~2020-08-10 15:01] MED LIST changes: -BUSPIRONE HCL5 MG PO; -EFFER-K 20 MEQ20 ME1 PO; -LASIX 40 MG TAB40 MG PO; -ONDANSETRON HCL4 M2 PO; -PREDNISOLONE 5 M5 M1 PO; -PROAIR HFA8.5 GM INH
[2020-08-10] MEDS ORDERED: PROAIR HFA8.5 GM INH (15:12)
[2020-08-10] MEDS ORDERED: BUSPIRONE HCL5 MG PO (15:13)
[2020-08-10] MEDS ORDERED: LASIX 40 MG TAB40 MG PO (15:14)
[2020-08-10] MEDS ORDERED: ONDANSETRON HCL4 M2 PO (15:15)
[2020-08-10] MEDS ORDERED: EFFER-K 20 MEQ20 ME1 PO (15:17)
[2020-08-10] MEDS ORDERED: PREDNISOLONE 5 M5 M1 PO (15:19)
[2020-08-10 16:03] VITALS: BP 149/92
--- NOTE | 2020-08-10 17:00 | NUR ---
PT DIRECT ADMIT FROM DR NGO OFFICE. PT TO THE ROOM - ORIENTED TO ROOM AND BEDSPACE. ASSESSMENT CHARTED - PT WITH LOSSE PORODUCTIVE COUGH, SPEC OBTAINED FOR PHYS TO VIEW. DR MARTI NOTIFEIED THAT PATIENT HAD ARRIVED ON THE UNIT - PORTACATH ACCESSED BY IV THERAPY NURSE. ORDER FOR DINNER OBTAINED. DR MARTI WILL BE IN TO SEE PATIENT LATER THIS EVENING. NO CO'S ATTHE PRESENT TIME.
[2020-08-10 18:02] LABS: ABSOLUTE NEUTROPHILS 6.1 thou/uL (1.4-8.2); BASOPHILS 0.6 % (0.0-2.0); HEMATOCRIT 38.1 % (42.0-52.0); HEMOGLOBIN 12.3 gm/dL (14.0-18.0); MCH 26.6 pg (26.0-34.0); MCHC 32.2 g/dL (28.0-37.0); MCV 82.8 fL (80.0-100.0); MONOCYTES 10.6 % (1.0-8.0); PLATELET COUNT 303 thou/uL (150-400); POLYS 74.8 % (36.0-66.0); RBC 4.61 mil/uL (4.50-6.00); RDW 18.7 % (10.5-14.5); WBC 8.1 thou/uL (4.0-11.0)
[2020-08-10 18:14] LABS: CALCIUM 8.9 mg/dL (8.5-10.1); CREATININE 1.8 mg/dL (0.7-1.3); POTASSIUM 3.8 mmol/L (3.5-5.1); TOTAL BILIRUBIN 0.4 mg/dL (0.2-1.0)
[2020-08-10 19:49] VITALS: BP 146/63
[2020-08-11 01:00] VITALS: BP 128/78
[2020-08-11 04:52] VITALS: BP 111/61
--- NOTE | 2020-08-11 06:32 | NUR ---
ASSUME CARE 1900. PT/VITALS STABLE. INTERMITTENT BACK PAIN WITH PA=ODERATE RELIEF FROM PAIN MED. MODERATE ENDURANCE TO ACTIVITY. PT EXTREMELY SOB WITH ACTIVITY. COUGHING EPISODES NOTED WITH THIS YELLOW PHLEGM. RA WITH SATS >92% BUT PT ON 2LNC FOR COMFORT. ASSESSMENT CHARTED. PROGRESSING MODERATELY TO POC. PLAN IS TO CONTINUE BREATHING TREATMENTS/STEROIDS AND ABX THERAPY. WILL CONTINUE TO MONITOR AND FOLLOW WITH POC. NO DISTRESS NOTED THROUGH THE SHIDT/SR1D AVB NOTED ON MONITOR
[2020-08-11 07:35] VITALS: BP 102/46
--- NOTE | 2020-08-11 09:11 | 2DMMODE ---
[facility] [place] [address] 2 D/M-MODE ECHOCARDIOGRAM Name: CB TALBERT Room #: 217-P ADM IN M.R.#: [id number] Admission: 08/10/20 Attend Phys: Yonis Tomas MD Discharge: Date of : 37 Report #: [id number] THIS REPORT FOR: cc: Leonides Yun MD, FAAFP, FACEP, Douglas MD FAAFP FACEP Lammoglia, Francisco J. MD ~ APPROVED REPORT Study performed: 08/11/2020 08:31:39 EXAM: Comprehensive 2D, Doppler, and color-flow Echocardiogram Patient Location: Bedside Room #: 217 Status: routine BSA: 2.13 HR: 77 bpm BP: 111/61 mmHg Rhythm: Sinus Other Information Study Quality: Adequate/TD parasternal window Technically limited study due to COPD, lung interference. Indications Dyspnea, chest discomfort. Hx: GA, stents, COPD, HTN, HLP. 2D Dimensions RVDd: 41.01 mm IVSd: 11.50 (7-11mm) LVDd: 57.79 mm PWd: 10.89 (7-11mm) LVDs: 41.53 (25-40mm) Left Atrium: 43.22 (27-40mm) Aortic Root: 38.34 mm Volumes Left Atrial Volume (Systole) Single Plane 4CH: 66.08 mL Single Plane 2CH: 64.15 mL LA ESV Index: 33.00 mL/m2 Aortic Valve AoV Peak Curly.: 1.69 m/s [facility] [place] [address] [place] [address] 2 D/M-MODE ECHOCARDIOGRAM Name: CB TALBERT Room #: 217-P [facility] IN .R.#: [id number] Admission: 08/10/20 Attend Phys: Yonis Tomas MD Discharge: Date of : 37 Report #: [id number] AO Peak Gr.: 11.42 mmHg LVOT Max P.84 mmHg LVOT Max V: 0.98 m/s Mitral Valve E/A Ratio: 0.8 MV Decel. Time: 181.54 ms MV E Max Curly.: 1.18 m/s MV A Curly.: 1.53 m/s MV PHT: 52.65 ms IVRT: 62.28 ms Pulmonary Vein P Vein S: 0.46 m/s P Vein D: 0.45 m/s P Vein S/D Ratio: 1.02 Tricuspid Valve TR Peak Curly.: 2.12 m/s RAP Estimate: 5.00 mmHg TR Peak Gr.: 18.02 mmHg PA Pressure: 23.00 mmHg Left Ventricle The left ventricle is normal size. There is normal left ventricular wall thickness. Left ventricular systolic function is normal. LVEF is 50-55%. Mild diastolic dysfunction is present (impaired relaxation pattern). Right Ventricle The right ventricle is normal size. The right ventricular systolic function is normal. Atria The left atrium size is normal. The right atrium size is normal. Aortic Valve The aortic valve is not well visualized. Mild aortic regurgitation. There is no aortic valvular stenosis. Mitral Valve The mitral valve is normal in structure. Mild mitral regurgitation. No evidence of mitral valve stenosis. Tricuspid Valve The tricuspid valve is normal in structure. Trace tricuspid regurgitation. Estimated PAP is 20-25mmHg. [facility] [place] [address] [place] [address] 2 D/M-MODE ECHOCARDIOGRAM Name: CB TALBERT Room #: 217-P [facility] IN M.R.#: [id number] Admission: 08/10/20 Attend Phys: Yonis Tomas MD Discharge: Date of : 37 Report #: [id number] Pulmonic Valve Pulmonic valve is not well visualized. Great Vessels The aortic root is normal in size. Ascending aorta is not well visualized. IVC is normal in size and collapses >50% with inspiration. Pericardium There is no pericardial effusion. <Conclusion> The left ventricle is normal size. LVEF is 50-55%. The right ventricle is normal size. The aortic valve is not well visualized. Mild aortic regurgitation. The mitral valve is normal in structure. Mild mitral regurgitation. The tricuspid valve is normal in structure. Trace tricuspid regurgitation. Estimated PAP is 20-25mmHg. Pulmonic valve is not well visualized. The aortic root is normal in size. There is no pericardial effusion. <ELECTRONICALLY SIGNED> By: Amilcar Rogel MD 08/11/20910 0 0 Amilcar Rogel MD /INF
[2020-08-11 11:45] VITALS: BP 111/71
--- NOTE | 2020-08-11 13:06 | NUR ---
ASSESSMENT: CM REVIEWED CHART AND MET WITH PT AT THE BEDSIDE. PT IS ALERT AND ORIENTED X4. PT WAS ADMITTED WITH DYSPNEA, COPD EXACERBATION. PT REPORTS THAT HE LIVES IN A HOUSE WITH HIS IN [place], [place]. PT REPORTS THAT HE HAS ABOUT 5 STEPS WITH [employer] TO ENTER THE HOME. PT STATES HE HAS A STAIR LIFT TO THE BASEMENT. PT REPORTS THAT SHE THAT HE HAS HAD [facility] IN THE PAST. PT REPORTS TAHT SHE DOES NOT HAVE ANY OXYGEN AT HOME. PT REPORTS BEING INDEPENDENT WITH ADLS AND AMBULATION BUT DOES HAVE A CANE AND WALKER AT HOME THAT HE DOES NOT USE. CM DISCUSSED ROLE. PT AND HIS STATING THEY DO NOT FEEL HE WILL HAVE ANY NEEDS AT DISCHARGE OR NEED HH. PT IS CURRENTLY ON IV ANBX AND IV STEROIDS. CM WILL CONTINUE TO FOLLOW TO ASSIST NEEDED.
[2020-08-11 15:50] VITALS: BP 117/63
--- NOTE | 2020-08-11 18:00 | NUR ---
PATIENT HAS RESTED IN ROOM THROUGH TH EDAY. HE IS ALERT ORIENTED X4. DENIES PAIN. RESPIRATIONS ARE NON LABORED. STATES HE IS BREATHING MUCH BETTER THAN WHEN HE CAME IN. WILL CONT WITH PLAN OF CARE.
[2020-08-11 20:50] VITALS: BP 121/57
[2020-08-12 03:20] VITALS: BP 115/64
--- NOTE | 2020-08-12 05:33 | NUR ---
ASSUMED PT CARE AT CHANGE OF SHIFT, C/O PAIN TO THE LOWER BACK, PAIN MEDS GIVEN WITH RELIEF, KEPT ON 2L VSS, ASSESSMENTS CHARTED, SR/BBB/1DAVB NOTED WITH PVCS, LABS ORDERED FOR THIS AM INCLUDING MG, C/O COUGH MUCINEX GIVEN WITH RELIEF, DENIES NEEDS AT THIS TIME, NO NEEDS AT THIS TIME, WILL CONTINUE TO MONITOR AND FOLLOW POC
[2020-08-12 07:00] LABS: CALCIUM 8.3 mg/dL (8.5-10.1); MAGNESIUM 2.3 mg/dL (1.8-2.4); POTASSIUM 3.8 mmol/L (3.5-5.1)
[2020-08-12 08:05] VITALS: BP 117/53
[2020-08-12 12:15] VITALS: BP 106/57
[2020-08-12 15:50] VITALS: BP 127/70
[2020-08-12 20:29] VITALS: BP 125/65
--- NOTE | 2020-08-13 02:59 | NUR ---
PT IS ALERT AND ORIENTED X4. VERY PLESANT MAN. ASSISTED WITH EVENING CARE HE DOES. LUNGS ARE CLEAR GETS SHORT OF BRETH AFTER ACTIVITY. WEARS O2 AT 2 LITERS NASAL CANULA TO HELP. ABDOMEN IS ROUND SOFT. BOWEL SOUND ACTIVE X4. PT HAS A PORT A CATH FOR ACCESS. PT IS A POST CANCER PT OF LUNG. DENIES PAIN RESTING AT THIS TIME.
[2020-08-13 05:20] VITALS: BP 119/77
[2020-08-13 07:50] VITALS: BP 128/66
[2020-08-13 15:10] VITALS: BP 129/64
--- NOTE | 2020-08-13 17:35 | NUR ---
ASSESSMENT CHARTED - MEDS PER MAY - GIVEN HYDOCODONE X 1 FOR CO'S OF PAIN IN BACK AND NECK. ARCADIO DIET AND FLUIDS. NO CO'S OF NAUSEA. PT AMBULATED IN THE HALLS THIS AFTERNOON - SOB WITH EXERTION. PT REQUIRING 02 FOR AMBULATION. SHOWERED THIS AFTERNOON. POST A CATH ACCESSED FOR IV NEEDS. PT WITH NO CO'S AT THE PRESENT TIME. FAMILY INTO VISIT.
[2020-08-13 19:51] VITALS: BP 131/69
[2020-08-14 04:12] VITALS: BP 119/63
--- NOTE | 2020-08-14 04:13 | NUR ---
PT IS PLEASANT ALERT AND OREINTED X4. LUNGS ARE COARSE TO WHEEZY AT TIMES. GETS BREATHING TREATMENTS PER RT. ABDOMEN IS SOFT AND ROUND. NO EDMA NOTED UP WITH ASSSISTANCE X1. VOIDS PER URINAL. COMPLAINTS OF PAIN IN BACK AND PAIN MEDS GIVEN FOR THAT. WILL CONTINUE TO MONITOR AND ASSESS PER NURSING. CALL LIGHT WITHIN REACH FOR ASSISTANCE NEEDED
[2020-08-14 08:05] VITALS: BP 140/75
[2020-08-14 11:55] VITALS: BP 124/59
[2020-08-14 16:15] VITALS: BP 148/87
--- NOTE | 2020-08-14 16:16 | NUR ---
ASSUMED CARE SHIFT CHANGE. VSS C/O PAIN MANAGED WITH PO PAIN MEDS. O2 SATS REMAIN WNL 2L O2. PT UP ARCADIO WELL. SPOUSE VISITED WITH PT, UPDATED ON POC. C/O CONSTIPATION, MIRALAX GIVEN PER ORDERS. COUGH MEDS GIVEN, RELIEF WITH MEDS. DENIES NEEDS CURRENTLY. CONT POC. WILL PASS ON REPORT TO JAMES JOHN.
[2020-08-14 20:35] VITALS: BP 138/72
--- NOTE | 2020-08-15 03:32 | NUR ---
PT IS ALERT AND ORIENTED X4. LUNGS ARE COARSE AT TIMES. BREATHING TREATMENTS PER RT. COUGHS UP CHILDS SPUTUM TO GREEN. COUGH SYRUP GIVEN TO AND A PAIN PILL HIS BACK HURTS HIM AT TIMES HE REPORTS. ABDOMEN IS SOFT AND NONTENDER . VOIDS PER URINAL. CALL LIGHT WITHIN REACH IF NEEDS ASSISTANCE FROM NURSING STAFF.
[2020-08-15 04:42] VITALS: BP 134/50
[2020-08-15 07:50] VITALS: BP 137/68
[2020-08-15 12:00] VITALS: BP 131/73
--- NOTE | 2020-08-15 12:53 | H ---
[facility] [place] [address] HISTORY AND PHYSICAL Name: CB TALBERT Room #: 217-P ADM IN M.R.#: [id number] Admission: 08/10/20 Attend Phys: Leonides Yun MD, FAA Discharge: Date of : 37 Report #: [id number] THIS REPORT FOR: cc: Leonides Yun MD FAAFP FACEP Leonides Yun MD FAA FACEP Leonides Yun MD FAA FACEP ~ DOC #: [id number] Leonides Yun MD HISTORY AND PHYSICAL LOCATION: [facility] CHIEF COMPLAINT: Dyspnea. HISTORY OF PRESENT ILLNESS: The patient is an 85-year-old white male patient of [facility] for many years, diagnosed in 2019 with lung cancer. He has been under chemotherapeutic treatment since his diagnosis. He saw Dr. Newsome on the day of admission as well as Dr. 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 Dr. Ny thought he had some element of bronchitis, started him on antibiotics and steroids. Dr. 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 He was so dyspneic in the office. He has had progressive dyspnea over about 10 days. Cough is productive of a thick yellow sputum. PAST MEDICAL HISTORY: Malignant neoplasm of right lung, coronary artery disease, ischemic cardiomyopathy, hypertension, hyperlipidemia, chronic kidney disease stage IV, and COPD. PAST SURGICAL HISTORY: [place], percutaneous catheterization with stent, right coronary artery 1995, again in 2001, vertebroplasty after a fall with recurrence of vertebrae year 1999, bilateral total knee replacements 2003, congenital right kidney only. He has had a lumbar laminectomy, bilateral cataract surgeries, left total shoulder replacement 2009, cardiac stents as mentioned above, cholecystectomy, and radiation for prostate cancer in 2012 and 2013. MEDICATIONS: Amitriptyline 25 mg 1 p.o. at bedtime, mag oxide 400 mg 1 p.o. daily, vitamin B6 100 mg p.o. daily, albuterol inhaler p.r.n., buspirone 5 mg 1 p.o. t.i.d., Lasix 40 mg half p.o. b.i.d., Nexium 40 mg daily, Accupril 10 mg 1 p.o. every day, atorvastatin 40 mg 1 p.o. every day. ALLERGIES: PENICILLIN. SOCIAL HISTORY: He is a and now has a new lady friend, retired, and smoked in the past more than a pack a day[place] [address] HISTORY AND PHYSICAL Name: CB TALBERT Omer Room #: 217-P [facility] IN M..#: [id number] Admission: 08/10/20 Attend Phys: Leonides Yun MD, FAAF Discharge: Date of : 37 Report #: [id number] FAMILY HISTORY: Noncontributory. REVIEW OF SYSTEMS: GENERAL: No fever, chills, nausea, vomiting, diarrhea. EYES: No visual changes. ENT: No problems with hearing, swallow, taste, or smell. CARDIOVASCULAR: No chest pain or palpitations. RESPIRATORY: He has difficulty breathing, exertional dyspnea, cough productive of sputum, and shortness of breath. GASTROINTESTINAL: No abdominal pain. GENITOURINARY: No problems urinating. MUSCULOSKELETAL: He is debilitated and has joint pain. NEUROLOGIC: No paresis, paralysis, or paresthesias. PSYCHIATRIC: Frustrated, not depressed. SKIN: No disturbing lesions or rash. Remainder of system review is negative. OBJECTIVE: VITAL SIGNS: Temperature is 36.9, pulse 91, respirations 18, blood pressure 111/71, pulse ox on room air is 96%. He is in no acute distress, speaks full sentences, and he is short of breath. Pupils equal, round, reactive to light, and accommodation. Extraocular muscles intact. Pharynx unremarkable. NECK: Supple. HEART: S1, S2, regular. CHEST: Scattered coarse breath sounds with wheezing in the right mid edwards. ABDOMEN: Soft, nontender. EXTREMITIES: He has 1+ pedal edema bilaterally. NEUROLOGIC: The patient is intact without focal deficit. LABORATORY DATA: CBC: White count 8.1, hemoglobin 12.3, hematocrit 38.1, platelets 303,000. Serum chemistry: Sodium 134, potassium 3.8, chloride 99, CO2 29, anion gap 6, BUN 26, creatinine 1.8, estimated GFR 36, glucose 125, calcium is 8.9, total bilirubin 0.4, AST 16, ALT 17, alkaline phosphatase 85. BNP 1671, total protein 7.0, albumin 3.0. Chest x-ray showed no acute cardiopulmonary abnormality. ASSESSMENT: Shortness of breath, coronary artery disease, ischemic cardiomyopathy, hypertension, hyperlipidemia, malignant neoplasm, right lung, chronic kidney disease stage IV, COPD exacerbation. PLAN: Admit to hospital, IV antibiotics with Levaquin, steroids, pulmonary toilet. Consults to Dr. Ny and Dr. Newsome. Leonides Yun MD [facility] [address] [place] [address] HISTORY AND PHYSICAL Name: CB TALBERT Room #: 217-P ADM IN .R.#: [id number] Admission: 08/10/20 Attend Phys: Leonides Yun MD, KARLA Discharge: Date of : 39 Report #: [id number] <ELECTRONICALLY SIGNED> By: Leonides Yun MD, LYDIA, RC 08/15/20 1253 [id number] Leonides Yun MD, LYDIA, RC /nt
[2020-08-15 15:45] VITALS: BP 138/75
[2020-08-15 19:30] VITALS: BP 123/61
[2020-08-16 04:00] VITALS: BP 107/59
[2020-08-16 05:47] LABS: ABSOLUTE NEUTROPHILS 9.5 thou/uL (1.4-8.2); BASOPHILS 0.1 % (0.0-2.0); EOSINOPHILS 0.1 % (0.0-3.0); HEMATOCRIT 36.4 % (42.0-52.0); HEMOGLOBIN 11.6 gm/dL (14.0-18.0); LYMPHOCYTES 6.2 % (24.0-44.0); MCH 26.3 pg (26.0-34.0); MCHC 31.8 g/dL (28.0-37.0); MCV 82.5 fL (80.0-100.0); MONOCYTES 7.6 % (1.0-8.0); PLATELET COUNT 298 thou/uL (150-400); RBC 4.42 mil/uL (4.50-6.00); RDW 18.3 % (10.5-14.5); WBC 11.1 thou/uL (4.0-11.0)
[2020-08-16 06:02] LABS: ALBUMIN 2.6 g/dL (3.4-5.0); CALCIUM 7.9 mg/dL (8.5-10.1); CREATININE 1.5 mg/dL (0.7-1.3); POTASSIUM 3.8 mmol/L (3.5-5.1); TOTAL BILIRUBIN 0.3 mg/dL (0.2-1.0); TOTAL PROTEIN 5.6 g/dL (6.4-8.2)
[2020-08-16 08:10] VITALS: BP 126/63
[2020-08-16 15:55] VITALS: BP 127/79
--- NOTE | 2020-08-16 16:43 | NUR ---
ASSESSMENT CHARTED - MEDS PER STEFANIA - ARCADIO DIET AND FLUIDS. PT AMBUALTED IN THE HALLS THIS SHIFT WITH PT AND RESP - SAT ON RA WHILE AMBULATING 95%. PT WITH COUGHING SPELLS WHICH LEAVE ROSEMARIE FEELING VERY SHORT OF BREATH - O2 @ 2 L NC AND PT FEELS BETTER WITH THIS ON. HAS BEEN ABLE TO COUGH UP PHLEM THIS SHIFT. PT SOB WITH EXERTION. BNP ELEVATED THIS AM. PT WITH NO CO'S AT THE PRESENT TIME.
--- NOTE | 2020-08-16 17:56 | NUR ---
spoke with patient regarding home health. He reports he wants to decline care. [facility] does not quealify for home oxygen. Discussed with [facility] who reports they can allow 2 months of oxygen then pattient would need to pay out of pocket or new sat/excercise and patient may qualify. Discussed with patient he would oxygen for home for comfort. He has used [employer] for nebulizer and would like to use [facility]. Faxed clinical to [facility] for review. Discussed with Dr Yun
[2020-08-16 19:20] VITALS: BP 135/64
[2020-08-17 04:41] VITALS: BP 117/55
[2020-08-17 07:52] VITALS: BP 132/79
--- NOTE | 2020-08-17 09:09 | NUR ---
Assess for length of stay. Admit with SOB, acute on chronic respiratory failure. Pt tolerating diet very well, states appetite is good. Wt change of loss 20 lb from 2019 with lung cancer dx, but no recent loss. Low nutrition risk
[2020-08-17 15:31] VITALS: BP 136/62
--- NOTE | 2020-08-17 16:51 | NUR ---
spoke with patient and at bedside. Patient reports he slept through night without oxygen. He reports he does not feel he needs at home. Patient cont plan for home with no oxygen and no HH care.
[2020-08-17 19:44] VITALS: BP 142/84
[2020-08-18 03:57] VITALS: BP 112/55
[2020-08-18 07:57] VITALS: BP 124/59
--- NOTE | 2020-08-18 11:28 | NUR ---
A/O, calm and pleasant. no soa, denied pain. no n/v. resting in bed with TV on, will keep monitoring.
[2020-08-18 15:12] VITALS: BP 141/73
[2020-08-18] MEDS ORDERED: IPRAT-ALBUT 0.5-3 ML INH ×2 (16:53→16:55)
[2020-08-18] MEDS ORDERED: GUAIFENESIN DM S5 ML PO (16:53)
--- NOTE | 2020-08-18 17:05 | NUR ---
IMPLANTED PORT LEFT CHEST DEACCESSED BY IV TEAM. TELE DISCONTINUED AND PT UNDERSTANDS ALL FOLLOW UP ORDERS.
--- NOTE | 2020-08-18 17:19 | NUR ---
UNABLE TO SCAN HEPARIN FOR PORT FLUSH
[2020-08-18 17:25] VITALS: BP 141/73
== END 2020-08-18 17:55 | disposition home or self-care (01) | DRG 189 ==
LOC: 2N 15:01
PROVIDERS: ADMIT Family Medicine; ATTEND Family Medicine
DX: J96.21 Acute and chronic respiratory failure with hypoxia (principal); J44.1 Chronic obstructive pulmonary disease with (acute) exacerbation; C34.91 Malignant neoplasm of unspecified part of right bronchus or lung; N18.4 Chronic kidney disease, stage 4 (severe); Q60.0 Renal agenesis, unilateral; I12.9 Hypertensive chronic kidney disease with stage 1 through stage 4 chronic kidney disease, or unspecified chronic kidney disease; I25.5 Ischemic cardiomyopathy; I25.10 Atherosclerotic heart disease of native coronary artery without angina pectoris; E78.5 Hyperlipidemia, unspecified; Z96.653 Presence of artificial knee joint, bilateral; Z96.612 Presence of left artificial shoulder joint; M19.90 Unspecified osteoarthritis, unspecified site; I25.2 Old myocardial infarction; Z98.42 Cataract extraction status, left eye; Z98.41 Cataract extraction status, right eye; Z95.5 Presence of coronary angioplasty implant and graft; Z90.49 Acquired absence of other specified parts of digestive tract; Z85.46 Personal history of malignant neoplasm of prostate; Z88.0 Allergy status to penicillin; Z87.891 Personal history of nicotine dependence; Z79.899 Other long term (current) drug therapy
CPT/HCPCS: 10081

== ENCOUNTER → 2020-08-10 | Outpatient (CLI) | payer OTHER ==
[~2020-08-10] MED LIST changes: +BUSPIRONE HCL5 MG PO; +EFFER-K 20 MEQ20 ME1 PO; +LASIX 40 MG TAB40 MG PO; +ONDANSETRON HCL4 M2 PO; +PREDNISOLONE 5 M5 M1 PO; +PROAIR HFA8.5 GM INH
== END ==
LOC: SJCVC 14:00
PROVIDERS: ATTEND Internal Medicine Cardiovascular Disease
DX: R94.31 Abnormal electrocardiogram [ECG] [EKG] (principal); I44.0 Atrioventricular block, first degree; R06.02 Shortness of breath; I25.10 Atherosclerotic heart disease of native coronary artery without angina pectoris; I25.5 Ischemic cardiomyopathy; E78.00 Pure hypercholesterolemia, unspecified; I12.9 Hypertensive chronic kidney disease with stage 1 through stage 4 chronic kidney disease, or unspecified chronic kidney disease; N18.4 Chronic kidney disease, stage 4 (severe); G62.9 Polyneuropathy, unspecified; I25.2 Old myocardial infarction; Z85.46 Personal history of malignant neoplasm of prostate; Z87.891 Personal history of nicotine dependence; Z72.89 Other problems related to lifestyle; Z79.899 Other long term (current) drug therapy

== ENCOUNTER → 2021-02-27 | Outpatient (CLI) | payer OTHER ==
[~2021-02-27] MED LIST changes: +BUSPIRONE HCL5 MG PO; +EFFER-K 20 MEQ20 ME1 PO; +GUAIFENESIN DM S5 ML PO; +IPRAT-ALBUT 0.5-3 ML INH; +LASIX 40 MG TAB40 MG PO; +ONDANSETRON HCL4 M2 PO; +PREDNISOLONE 5 M5 M1 PO; +PROAIR HFA8.5 GM INH
== END | disposition home or self-care (01) ==
LOC: SJCVC 10:42
PROVIDERS: ATTEND Internal Medicine Cardiovascular Disease
DX: R94.31 Abnormal electrocardiogram [ECG] [EKG] (principal); I25.10 Atherosclerotic heart disease of native coronary artery without angina pectoris; I12.9 Hypertensive chronic kidney disease with stage 1 through stage 4 chronic kidney disease, or unspecified chronic kidney disease; N18.4 Chronic kidney disease, stage 4 (severe); E78.00 Pure hypercholesterolemia, unspecified; I25.5 Ischemic cardiomyopathy; K21.9 Gastro-esophageal reflux disease without esophagitis; C61 Malignant neoplasm of prostate; G62.9 Polyneuropathy, unspecified; M19.90 Unspecified osteoarthritis, unspecified site; J44.9 Chronic obstructive pulmonary disease, unspecified; F10.20 Alcohol dependence, uncomplicated; Z87.891 Personal history of nicotine dependence; Z79.899 Other long term (current) drug therapy; Y90.9 Presence of alcohol in blood, level not specified; Z98.42 Cataract extraction status, left eye; Z98.41 Cataract extraction status, right eye; Z96.653 Presence of artificial knee joint, bilateral